=== PATIENT | female | born 1990 | race Caucasian/White ===

== ENCOUNTER 2023-10-04 12:11 | Outpatient (CLI) | payer OTHER, SELFPAY ==
--- OUTSIDE RECORDS SUMMARY | 2023-10-04 12:16 | XMS_ITS | Encounter Summary ---
Author Organization [place] Address [address] [place] [address] Care Team Providers Care Transport Aircrewman Name Role Phone [facility] Primary Care Provider Faustina Hunt MD Unavailable Ac Craven DPM Unavailable [phone] Vitaly Kulkarni MD Unavailable Charley Anderson MD Unavailable Unavailabl e Crintea-StoianFaustina MD Unavailable Charley Anderson MD Unavailable Unavailabl e Vanntea-StoianFaustina MD Unavailable Charley Anderson MD Unavailable Unavailabl e Vanntea-StoFaustina green MD Unavailable Faustina Hunt MD Unavailable [facility] Unavailable Encounter Details Date Type Department Care Team (Late st Contact Info) Description 08/28/2020 [facility] Medical Advice [facility] [address] [place] [address] Claudia Do RN Social History Tobacco Use Types Packs/Day Years Used Date Smoking Tobacco: Never Smokeless Tobacco: Never Alcohol Use Standard Drinks/Week Comments Not Currently 0 (1 standard drink = 0.6 oz pur e alcohol) 1x/week AUDIT-C Answer Date Recorded Q1: How often do you have a drink containing alc ohol? Never 02/03/2019 Average Number of Drinks Not on file 019 Frequency of Binge Drinking Not on file 01/07 PHQ-2 Answer Date Recorded PHQ-2 Score 0 10/10/2019 [place] Depression Scale Answer Date Recorded [place] Depression Score 7 09/11/2019 Last EPDS Self Harm Result Not on file 09/10 Sex and Gender Information Value Date Recorded Sex Assigned at Not on file Gender Identity Not on file Sexual Orientation Not on file COVID-19 Exposure Response Date Recorded In the last month, have you been in contact with someone who was confirmed or suspected to have Coronavirus / COVID-19? 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 documented as of this encounter Care Teams Transport Aircrewman Relationship Specialty Start Date End Date [facility] [address] [place], [place] [address] PCP - General Internal Medicine 01/03/20 Faustina Hunt MD [address] [place], [place] [address] Assigned PCP 12/12/19 08/29/20 Ac Craven DPM [address] [facility] [address] [place] [address] Assigned Musculoskeletal Provider 02/28/20 08/07/21 Vitaly Kulkarni MD [address] [place] [address] Assigned OBGYN Provider 02/28/20 Charley Anderson MD [place]CTIVE IN [place] SINCE 05/07/2021 Assigned PCP 08/30/20 10/31/20 Faustina Hunt MD [address] [place] [address] Assigned PCP 11/01/20 01/09/21 Charley Anderson MD [place] 05/07/2021 Assigned PCP 01/10/21 05/15/21 Faustina Hunt MD [address] [place] [address] Assigned PCP 05/16/21 07/10/21 Charley Anderson MD [place] 05/07/2021 Assigned PCP 07/11/21 11/12/21 Faustina Hunt MD [address] [place] [address] Assigned PCP 11/13/21 04/22/22 Faustina Hunt MD [address] [place] [address] Assigned PCP 07/02/22 01/06/23 [facility] [address] [address] Assigned PCP 06/01/23 09/27/23 documented as of this encounter
--- OUTSIDE RECORDS SUMMARY | 2023-10-04 12:16 | XMS_ITS | Clinical Summary ---
Author Organization [place] Address [address] [place] [address] Care Team Providers Care Pari Mutuel Ticket Seller Name Role Phone [facility] Primary Care Provider Allergies Active Allergy Reactions Criticality Noted Date Comments Fruit Extracts 08/31/2006 Oranges irritate her hands. Breaks out in a rash Sabine Oil Rash Low 05/23/2012 OrangesFruit extract Medications Medication Sig Dispensed Refills Start Date End Date Status sertraline (ZOLOFT) 50 MG tabletIndications:No rmal in multigravida in first trimester,Depression during in second trimester Take 1 tablet (50 mg) by mouth daily 90 tablet 3 09/13/2019 Active Additional Information Patient not taking.Reported on 04/01/2023 ibuprofen (ADVIL/MOTRIN) 600 MG tabletIndications:Pa inful orthopaedic hardware (H24),S/P foot surgery, right Take 600mg of ibuprofen every 6 hours x 7 days to assist in pain control. If you are not tolerating the medication, you are ok to stop. 30 tablet 01/08/2020 Active Additional Information Patient not taking.Reported on 08/21/2020 acetaminophen (TYLENOL) 325 MG tabletIndications:Pa inful orthopaedic hardware (H24),S/P foot surgery, right Take 2 tablets (650 mg) by mouth every 4 hours as needed for mild pain 50 tablet 01/08/2020 Active Additional Information Patient not taking.Reported on 08/21/2020 ibuprofen (ADVIL/MOTRIN) 600 MG tabletIndications:S/ P foot surgery, right Take 600mg of ibuprofen every 6 hours as needed for pain control. 15 tablet 01/14/2020 Active Additional Information Patient not taking.Reported on 02/07/2020 ADDERALL XR 20 MG 24 hr capsule Take 20 mg by mouth daily 07/09/2020 Active ondansetron (ZOFRAN ODT) 4 MG ODT tabIndications:Nause a and vomiting, unspecified vomiting type Take 1-2 tablets (4-8 mg) by mouth every 8 hours as needed for nausea 10 tablet 04/01/2023 Active Active Problems Problem Noted Date Diagnosed Date Painful orthopaedic hardware (H24) 12/20/2019 Overview: Added automatically from request for surgery [id number] ASCUS of cervix with negative high risk HPV 10/2015 Overview: 2006 - 2013 all NIL paps (in Care Everywhere) 09/11/15 ASCUS pap, neg HR HPV @ age 25 (in Care Everywhere) -- per guidelines, 3 year cotest indicated 02/27/19 NIL pap, neg HR HPV. Plan 3 year pap Tibial torsion 11/12/2011 Depressive disorder 04/08/2011 Generalized anxiety disorder 02/09/2011 Attention deficit hyperactivity disorder (ADHD) 12/10/2010 Overview: ADHD. Resolved Problems Problem Noted Date Diagnosed Date Resolved Date Vaginal delivery 09/13/2019 09/11/2019 Encounter for sterilization 09/13/2019 09/11/2019 anemia 09/13/2019 09/11/2019 Indication for care in labor or delivery 08/27/2019 09/13/2019 Encounter for triage in patient 08/03/2019 09/13/2019 Hyperemesis gravidarum 02/12/201909/12 Immunizations Name Administration Dates Next Due Flu, Unspecified 01/23/2013 HIB (PRP-T) 07/05/1991,07/23/1990,05/23/1990 HPV Quadrivalent 09/02/2008,03/03/2008, 8 Hepatitis B, Peds 12/06/2000,07/05/2000,05/17/19 01 Historical DTP/aP 08/11/1994, 2,07/23/1990,1990,02/23/1990 Influenza (H1N1) 03/13/2009 Influenza (IIV3) PF 02/08/2012,02/07/2011,2008 Influenza Vaccine >6 months,quad, PF 08/21/2020 MMR 01/02/2003,07/05/1991 Mantoux Tuberculin Skin Test 11/05/1990 OPV, unspecified 08/11/1994, 2,05/23/1990,1989 TDAP Vaccine (Adacel) 07/04/2019,10/16/2009 Td (Adult), Adsorbed 01/02/2003 Family History Medical History Relation Comments Diabetes Maternal Grandfather Breast Cancer Maternal Grandmother Cerebrovascular Disease Paternal Grandmother Relation Status Comments Maternal Grandfather Maternal Grandmother Paternal Grandmother Social History Tobacco Use Types Packs/Day Years Used Date Smoking Tobacco: Never Smokeless Tobacco: Never Tobacco Cessation:Counseling Given: Yes Alcohol Use Standard Drinks/Week Comments Not Currently 0 (1 standard drink = 0.6 oz pur e alcohol) 1x/week AUDIT-C Answer Date Recorded Q1: How often do you have a drink containing alc ohol? Never 02/03/2019 Average Number of Drinks Not on file 019 Frequency of Binge Drinking Not on file 01/07 PHQ-2 Answer Date Recorded PHQ-2 Score 0 10/10/2019 [place] Depression Scale Answer Date Recorded [place] Depression Score 7 09/11/2019 Last EPDS Self Harm Result Not on file 09/10 Adolescent Education Answer Date Record ed Getting School Help Needed Not on file 01/27 Sex and Gender Information Value Date Recorded Sex Assigned at Not on file Gender Identity Not on file Sexual Orientation Not on file Last Filed Vital Signs Vital Sign Reading Time Taken Comments Blood Pressure 107/72 04/01/2023 9:15 AM ELECTRICAL MANAGER Pulse 73 04/01/2023 9:15 AM ELECTRICAL MANAGER Temperature 36.2 ??C (97.1 ??F) 04/01/2023 9:15 AM CS T Respiratory Rate 20 11/29/2022 10:02 AM CDT Oxygen Saturation 99% 04/01/2023 9:15 AM ELECTRICAL MANAGER Inhaled Oxygen Concentration - - Weight 58.1 kg (128 lb) 08/21/2020 8:47 AM CDT Height 170.2 cm (5' 7) 08/21/2020 8:47 AM CDT Body Mass Index 20.05 08/21/2020 8:47 AM CDT Plan of Treatment Upcoming Encounters Date Type Department Care Team (Late st Contact Info) Description 10/30/2023 10:00 AM CDT Office Visit [facility] [address] [place] [address] [place] [address] [place] [address] Health Maintenance Due Date Last Done Comments ANNUAL REVIEW OF HM ORDERS 1989 YEARLY PREVENTIVE VISIT 1989 HEPATITIS C SCREENING 11/18/2007 PAP FOLLOW-UP 02/27/2022 02/27/2019, 02/06, 02/27/2019 COVID-19 Vaccine ( season) 2023 01/07/2021 PHQ-2 (once per calendar year) 2023 10/10/2019, 04/02/2019, 04/02/2019 ADVANCE CARE PLANNING 01/05/2025 01/06/2020 DTAP/TDAP/TD IMMUNIZATION (8 - Td or Tdap) 07/04/2029 07/04/2019, 10/16/2009, 01/02/2003, Additional history exists HEPATITIS B IMMUNIZATION Completed 001, 07/05/2000, 05/17/2000 HPV IMMUNIZATION Completed 09/02/2008, , 12/31/2007 HIV SCREENING Completed 02/11/2019 INFLUENZA VACCINE Completed 02/03/2023, , 02/05/2021, Additional history exists IPV IMMUNIZATION Aged Out No longer e ligible based on patient's age to complete this topic MENINGITIS IMMUNIZATION Aged Out No l onger eligible based on patient's age to complete this topic Pneumococcal Vaccine: Pediatrics (0 to 5 Years) and At-Risk Patients (6 to 64 Years) Aged Out No longer eligible based on patient's age to complete this topic RSV MONOCLONAL ANTIBODY Aged Out No l onger eligible based on patient's age to complete this topic Procedures Procedure Name Priority Date/Time Associated Diagnosis Comments PAP IMAGED THIN LAYER SCREEN Routine 02/27/2019 10:04 AM CDT Normal in multigravida in first trimester Hx of pre-eclampsia in prior , currently , first trimester Hyperemesis gravidarum HIV ANTIGEN ANTIBODY COMBO Routine 02/11/2019 7:01 PM CDT Encounter for supervision of other normal in first trimester from Last 3 Months or Most Recently Relevant to Health Maintenance Results * Pap imaged thin layer screen reflex to HPV if ASCUS - recommend age 25 - 29 (02/27/2019 10:04 AM CDT) PAP NIL TUNDE Greco Report Patient Name: GERALDINE SHEA MR#: [id number] Specimen #: [id number] Collected: 02/27/2019 Received: 02/28/2019 Reported: 03/01/2019 12:05 Ordering Phy(s): VITALY BOUDREAUX For improved result formatting, select 'View Enhanced Report Format' under Linked Documents section. SPECIMEN/STAIN PROCESS: Pap imaged thin layer prep screening (Surepath, FocalPoint with guided screening) ? Pap-Cyto x 1, Pap with reflex to HPV if ASCUS x 1 SOURCE: Cervical Pap imaged thin layer prep screening (Surepath, FocalPoint with guided screening) SPECIMEN ADEQUACY: Satisfactory for evaluation. -Transformation zone component absent. CYTOLOGIC INTERPRETATION: Negative for intraepithelial lesion or malignancy Electronically signed out by: Lang ROLLINS, (ASCP) CLINICAL HISTORY: LMP: 12/23/18 , Papanicolaou Test Limitations: ??Cervical cytology is a screening test with limited sensitivity; regular screening is critical for cancer prevention; Pap tests are primarily effective for the diagnosis/preventi on of squamous cell carcinoma, not adenocarcinomas or other cancers. COLLECTION SITE: Client: ??[facility] Location: [facility]) The technical component of this testing was completed at the [facility], with the professional component performed at the [facility], [address], [place] [address] ([phone]) COPATH Cytologic material (specimen) 02/27/2019 10:04 AM CDT 02/28/2019 7:55 AM CDT Vitaly Boudreaux MD LAB - OPTIME C LINICAL SPECIMEN COPATH * HIV Antigen Antibody Combo (02/11/2019 7:01 PM CDT) HIV Antigen Antibody Combo Nonreactive NR^Nonrea ctive 02/12/2019 4:17 PM CDT [facility] Comment:HIV-1 p24 Ag & HIV-1 /HIV-2 Ab Not Detected Blood specimen (specimen) 02/11/2019 7:01 PM CDT 02/11/2019 7:06 PM CDT Vitaly Boudreaux MD LAB - BLOOD OR DERABLES [facility] [address] [place] [address] from Last 3 Months or Most Recently Relevant to Health Maintenance Advance Directives For more information, please contact: [phone] * Full Code (Latest Code Status on File) Date Activated Date Inactivated Comments 07/21/2011 6:53 AM 02/03/2019 9:02 PM * Full Code Date Activated Date Inactivated Comments 07/21/2011 1:18 AM 07/21/2011 6:53 AM Care Teams Pari Mutuel Ticket Seller Relationship Specialty Start Date End Date Clinic - [address] [address] PCP - General Internal Medicine 01/03/20
--- OUTSIDE RECORDS SUMMARY | 2023-10-04 12:16 | XMS_ITS | Clinical Summary ---
[facility] Organization [facility] Address [address] [place] [address] Care Team Providers Care Stock Control Supervisor Name Role Phone Needs Pcp, Assignment Primary Care Provider [phone] Source Comments You are receiving this document as you are listed as the primary care provider,follow-up provider, or the patient has been referred to you for consultation.This is in compliance with the Medicare and[place] EHR Incentive Program,which states Providers who transition their patient to another setting of careor provider of care or refers their patient to another provider of care shouldprovide summary care record for each transition of care or referral. Catapulter Allergies Active Allergy Reactions Criticality Noted Date Comments Fruit Extracts Hives 07/14/2011 PN: when applied topically Medications Medication Sig Dispensed Refills Start Date End Date Status etonogestrel (NEXPLANON) 68 MG implant 68 mg by Subdermal route See Admin Instructions. To be administered once every 3 years in clinic office. 07/15/2011 Active ondansetron (ZOFRAN) 4 MG tablet Take 1 tablet by mouth every 8 hours as needed for Nausea and Vomiting. 30 tablet 0 07/15/2011 Active oxyCODONE (ROXICODONE) 5 MG immediate release tablet Take 1-2 tablets by mouth every 4 hours as needed for Pain. Indications: PAIN 80 tablet 0 07/15/2011 Active Additional Information Patient not taking.Reported on 06/19/2019 amphetamine-dextro amphetamine (ADDERALL) 30 MG tablet Take 25 mg by mouth daily (every 24 hours). 07/15/2011 Active MORphine (MSCONTIN) 30 MG 12 hour release tablet Take 1 tablet by mouth 2 times daily. Do not cut/crush/chew Indications: PAIN 40 tablet 0 07/15/2011 Active Additional Information Patient not taking.Reported on 06/19/2019 MORphine (MSCONTIN) 30 MG 12 hour release tablet Take 1 tablet by mouth 2 times daily. Do not cut/crush/chew Indications: PAIN 40 tablet 0 06/29/2012 Active Additional Information Patient not taking.Reported on 06/19/2019 oxyCODONE (ROXICODONE) 5 MG immediate release tablet Take 1-2 tablets by mouth every 4 hours as needed for Pain. Indications: PAIN 80 tablet 0 06/29/2012 Active Additional Information Patient not taking.Reported on 06/19/2019 hydrOXYzine pamoate (VISTARIL) 25 MG capsule Take 1-2 capsules by mouth every 4 hours as needed for Other (pain). 60 capsule 0 06/29/2012 Active Additional Information Patient not taking.Reported on 06/19/2019 ondansetron (ZOFRAN) 4 MG tablet Take 1 tablet by mouth every 8 hours as needed for Nausea and Vomiting. 30 tablet 0 06/29/2012 Active sertraline (ZOLOFT) 25 MG tablet Take 25 mg by mouth daily. Active Social History Tobacco Use Types Packs/Day Years Used Date Smoking Tobacco: Never Smokeless Tobacco: Never Alcohol Use Standard Drinks/Week Comments Yes 0 (1 standard drink = 0.6 oz pur e alcohol) social Estimated Date of Delivery Comme nts Yes 09/29/2019 Sex and Gender Information Value Date Recorded Sex Assigned at Not on file Gender Identity Not on file Sexual Orientation Not on file Last Filed Vital Signs Vital Sign Reading Time Taken Comments Blood Pressure 95/56 06/19/2019 10:35 AM SPLASH LINE OPERATOR Pulse 115 06/19/2019 10:35 AM SPLASH LINE OPERATOR Temperature 37 ??C (98.6 ??F) 06/19/2019 10:35 AM SPLASH LINE OPERATOR Respiratory Rate 20 06/19/2019 10:35 AM SPLASH LINE OPERATOR Oxygen Saturation 99% 06/19/2019 10:35 AM SPLASH LINE OPERATOR Inhaled Oxygen Concentration - - Weight 53.5 kg (118 lb) 07/14/2011 11:01 AM SPLASH LINE OPERATOR Height 170.2 cm (5' 7) 07/14/2011 11:01 AM SPLASH LINE OPERATOR Body Mass Index 18.48 07/14/2011 11:01 AM SPLASH LINE OPERATOR Plan of Treatment Health Maintenance Due Date Last Done Comments Cervical Cancer Screening Due 1989 Hep C Screening (Preventive Services) 1989 HIV Screening (Preventive Services) 2005 Adult Preventive Visit 11/18/2007 DTaP/Tdap/Td (1 - Tdap) 2008 HepB (1) 2008 COVID-19 Vaccine ( - 2022-2 4 season) 2023 Influenza (Season Ended) 2024 Zoster/Shingles (1 of 2) 11/18/2039 HPV Vaccine Aged Out No longer eligi ble based on patient's age to complete this topic HepA Aged Out No longer eligi ble based on patient's age to complete this topic Hib Aged Out No longer eligi ble based on patient's age to complete this topic IPV (Polio) Aged Out No longer eligi ble based on patient's age to complete this topic MCV4 Aged Out No longer eligi ble based on patient's age to complete this topic Pneumococcal Aged Out No longer eligi ble based on patient's age to complete this topic Care Teams Stock Control Supervisor Relationship Specialty Start Date End Date Needs Pcp, [place] [address] PCP - General 06/19/19
--- OUTSIDE RECORDS SUMMARY | 2023-10-04 12:16 | XMS_ITS | Referral Summary ---
Author Organization [place] Address [address] [place] [address] Care Team Providers Care Roll Forger Name Role Phone [facility] Primary Care Provider Allergies Active Allergy Reactions Criticality Noted Date Comments Fruit Extracts 08/31/2006 Oranges irritate her hands. Breaks out in a rash [place] Oil Rash Low 05/23/2012 OrangesFruit extract Medications [...] Overview: Added automatically from request for surgery [id number] ASCUS of cervix with negative high risk [...] Vaccine (Adacel) 07/04/2019,10/16/2009 Td (Adult), Adsorbed 01/02/2003 Social History Tobacco Use Types Packs/Day Years [...] Answer Date Recorded PHQ-2 Score 0 10/10/2019 [place] Depression Scale Answer Date Recorded [place] Depression Score 7 09/11/2019 Last EPDS Self [...] Comments Blood Pressure 107/72 04/01/2023 9:15 AM MEASUREMENT SUPERVISOR Pulse 73 04/01/2023 9:15 AM MEASUREMENT SUPERVISOR Temperature 36.2 ??C (97.1 ??F) 04/01/2023 9:15 AM CS T Respiratory Rate 20 11/29/2022 10:02 AM CDT Oxygen Saturation 99% 04/01/2023 9:15 AM MEASUREMENT SUPERVISOR Inhaled Oxygen Concentration - - Weight 58.1 kg (128 lb) 08/21/2020 8:47 AM CDT Height 170.2 cm (5' 7) 08/21/2020 8:47 AM CDT Body Mass Index 20.05 08/21/2020 8:47 AM CDT Plan of Treatment Upcoming Encounters Date Type Department Care Team (Late st Contact Info) Description 10/30/2023 10:00 AM CDT Office Visit [facility] [address] [place] [phone] AnkitaClemente [address] [place] [address] Procedures Procedure Name Priority Date/Time Associated Diagnosis [...] - 29 (02/27/2019 10:04 AM CDT) PAP AKIRA Greco Report Patient Name: GERALDINE SHEA MR#: [id number] Specimen #: [id number] Collected: 02/27/2019 Received: 02/28/2019 Reported: 03/01/2019 12:05 [...] lesion or malignancy Electronically signed out by: Isomary Poventud-Bella CT, (ASCP) CLINICAL HISTORY: LMP: 12/23/18 , Papanicolaou Test Limitations: ??Cervical cytology is a screening test with limited sensitivity; regular screening is critical for cancer prevention; Pap tests are primarily effective for the diagnosis/preventi on of squamous cell carcinoma, not adenocarcinomas or other cancers. COLLECTION SITE: Client: [facility] Location: [facility] () The technical component of this testing was completed at the [facility], with the professional component performed at the [facility], [address] [place] [phone] ([phone]) COPATH Cytologic material (specimen) 02/27/2019 10:04 AM CDT 02/28/2019 7:55 AM CDT Vitaly Boudreaux MD LAB - OPTIME C LINICAL SPECIMEN Performing Organization Address [facility]/ZIP Co de Phone Number COPATH * HIV Antigen Antibody Combo (02/11/2019 7:01 PM CDT) HIV Antigen Antibody Combo Nonreactive NR^Nonrea ctive 02/12/2019 4:17 PM CDT [facility] Comment:HIV-1 p24 Ag & HIV-1 /HIV-2 Ab Not Detected Blood specimen (specimen) 02/11/2019 7:01 PM CDT 02/11/2019 7:06 PM CDT Vitaly Boudreaux MD LAB - BLOOD OR DERABLES Performing Organization Address City/[facility]/ZIP Co de Phone Number [facility] [address] [place] [address] from Last 3 Months or Most Recently Relevant to Health Maintenance Advance Directives For more information, please contact: [phone] * Full Code (Latest Code Status on File) Date Activated Date Inactivated Comments 07/21/2011 6:53 AM 02/03/2019 9:02 PM * Full Code Date Activated Date Inactivated Comments 07/21/2011 1:18 AM 07/21/2011 6:53 AM Care Teams Roll Forger Relationship Specialty Start Date End [place] [address] [address] PCP - General Internal Medicine 01/03/20
--- OUTSIDE RECORDS SUMMARY | 2023-10-04 12:16 | XMS_ITS | Encounter Summary ---
Author Organization [facility] Address [address] [place] [id number] Care Team Providers Care Window Air Conditioner Installer Name Role Phone No Ref-Primary, Physician Primary Care Provider [facility] Primary Care Provider Faustina Hunt MD Unavailable Ac Craven DPM Unavailable [phone] Vitaly Kulkarni MD Unavailable Charley Anderson MD Unavailable Unavailabl e Faustina Hunt MD Unavailable Charley Anderson MD Unavailable Unavailabl e Faustina Hunt MD Unavailable Charley Anderson MD Unavailable Unavailabl e Faustina Hunt MD Unavailable Faustina Hunt MD Unavailable [facility] Unavailable Encounter Details Date Type Department Care Team (Late st Contact Info) Description 11[place]18/[place] [facility] [place] [facility] [address] [facility] [address] [place] [address] Frank Weber Social History Tobacco Use Types Packs/Day Years Used Date Smoking Tobacco: Never Smokeless Tobacco: Never Alcohol Use Standard Drinks/Week Comments Not Currently 0 (1 standard drink = 0.6 oz pur e alcohol) AUDIT-C Answer Date Recorded Q1: How often do you have a drink containing alc ohol? Never 02/03/2019 Average Number of Drinks Not on file 019 Frequency of Binge Drinking Not on file 01/07 PHQ-2 Answer Date Recorded PHQ-2 Score 0 10/10/2019 [place] Depression Scale Answer Date Recorded [place] Depression Score 7 09/11/2019 Last EPDS Self [...] have Coronavirus / COVID-19? No / Unsure 11/15/2019 1:19 PM CDT documented as of this encounter Plan of Treatment Upcoming Encounters Date Type Department Care Team (Late st Contact Info) Description 10/30/2023 10:00 AM CDT Office Visit [facility] [id number] [place] [phone] [place] [id number] [place] [id number] documented as of this encounter Visit Diagnoses Not on filedocumented in this encounter Additional Health Concerns Assessment Noted Time PHQ-9 Depression Total Score: 15 019 3:41 PM PHOTO MACHINE OPERATOR documented as of this encounter Care Teams Window Air Conditioner Installer Relationship Specialty Start Date End Date No Ref-Primary, Physician PCP - General 02/03/19 01/02/20 [facility] [address] [place], [place] [id number] PCP - General Internal Medicine 01/03/20 Faustina Hunt MD [address] [place], [place] [address] Assigned PCP 12/12/19 08/29/20 Ac Craven DPM [id number] [facility] [address] [place] [address] Assigned Musculoskeletal Provider 02/28/20 08/07/21 Vitaly Kulkarni MD [address] [place] [address] Assigned OBGYN Provider 02/28/20 Charley Anderson MD [facility] [place] 05/07/2021 Assigned PCP 08/30/20 10/31/20 Faustina Hunt MD [address] [place] [address] Assigned PCP 11/01/20 01/09/21 Charley Anderson MD [place] 05/07/2021 Assigned PCP 01/10/21 05/15/21 Faustina Hunt MD [address] [place] [address] Assigned PCP 05/16/21 07/10/21 Charley Anderson MD [place] 05/07/2021 Assigned PCP 07/11/21 11/12/21 Faustina Hunt MD [address] [place] [address] Assigned PCP 11/13/21 04/22/22 Faustina Hunt MD [address] [place] [address] Assigned PCP 07/02/22 01/06/23 [facility] [address] [place] [address] Assigned PCP 06/01/23 09/27/23 documented as of this encounter
== END 2023-10-04 12:12 | disposition home or self-care (01) ==
PROVIDERS: PCP Physician Assistant Medical; Visit Provider Physician Assistant Medical
DX: F41.8 Other specified anxiety disorders (principal)
CPT/HCPCS: 80053; 84443

== ENCOUNTER 2024-10-18 07:34 | Day surgery (SDC) | payer BC, SELFPAY ==
[2024-10-18] VITALS (9 sets, daily range): BP systolic 113–132; BP diastolic 81–95; PULSE 62–89; RESP 16; TEMP 37.4; O2SAT 95–100; BMI 22.1
[2024-10-18] MEDS: LACTATED RINGERS 500 ML 500 ML 100 ML IV (08:30)
[2024-10-18] MEDS: SODIUM CHLORIDE 0.9 % (FLUSH) 10 ML SYRINGE IVF (08:30)
--- NOTE | 2024-10-18 09:28 | P.ANES_ITS ---
Anesthesia Charges Start Date/Time Anesthesia Start Date: 10/18/24 Anesthesia Start Time: 09:44 Stop Date/Time Anesthesia Stop Date: 10/18/24 Anesthesia Stop Time: 10:25 Coding CPT Codes CPT Codes: ANESTH HYSTEROSCOPE/GRAPH - 98500 ([id number]) P1 - NORMAL HEALTHY PATIENT, QK - ADMINISTRATIVE FELLOW 2-4 CNCRNT ANES PROC, QX - OIL PROSPECTING OBSERVER SVC W/ MED DIRECTION
--- NOTE | 2024-10-18 09:28 | W.ANESCHARGE ---
Anesthesia Charges Start Date/Time Anesthesia Start Date: 10/18/24 Anesthesia Start Time: 09:44 Stop Date/Time Anesthesia Stop Date: 10/18/24 Anesthesia Stop Time: 10:25 Coding CPT Codes CPT Codes: ANESTH HYSTEROSCOPE/GRAPH - 62938 ([id number]) P1 - NORMAL HEALTHY PATIENT, QK - ELECTRIC REFRIGERATOR SERVICER 2-4 CNCRNT ANES PROC, QX - PAVING CREW FOREMAN SVC W/ MED DIRECTION
[2024-10-18] MEDS: LIDOCAINE 1% MDV 20 ML INJECTION (10:02)
[2024-10-18] MEDS: BUPIVACAINE 0.25% 30 ML INJECTION (10:02)
--- NOTE | 2024-10-18 10:21 | P.GYNPRC_ITS ---
Procedure Note Date of procedure: 10/18/24 Will [facility] bill your pro fee for this procedure?: Yes Pre-op diagnosis: Menometrorrhagia. Post-op diagnosis: Same. Procedure: Hysteroscopy, D&C, Airam endometrial ablation. Anesthesia: MAC and other (Paracervical block) Complications: None. Surgeon: Deb Palmer MD. Estimated blood loss (mL): 5 Pathology: specimen obtained, sent to pathology (Endometrial curettings) Condition: stable Disposition: same day Findings: Normal-appearing endometrial cavity and tubal ostia bilaterally. Procedure Description: After obtaining informed consent, the patient was taken to the operating room where she received monitored anesthesia care. She was prepared and draped in the normal sterile fashion, in the dorsal lithotomy position. An open-sided bivalve speculum was introduced into the vagina and the cervix visualized. The anterior lip of the cervix was grasped with a single-tooth tenaculum for traction. A paracervical block was then administered using a total of 20 mL of a 50/50 mixture of 0.25% Marcaine and 1% lidocaine plain. The uterus was gently sounded. Sound length was 9 cm. The cervix length was determined to be 4 cm using Hegar dilators, yielding a uterine cavity length of 5 cm. The cervix was gently dilated to a #6 Hegar dilator. A hysteroscope was then advanced under direct visualization through the cervix into the uterine cavity. Sterile normal saline was used as distending medium. The uterine cavity was carefully inspected with the findings noted above. The hysteroscope was then removed. The endometrial lining was then sharply curetted. The Airam device was then set to a cavity length of 5 cm, inserted through the cervical os into the uterine cavity to the level of the fundus, and deployed. The device was sealed against the cervix. The safety checks were then passed x2 and the 2-minute treatment cycle initiated. Following completion of the treatment cycle, the Airam device was removed. The hysteroscope was advanced again into the uterine cavity and the uterine cavity inspected. A good ablation was noted from the internal os to fundus and to the cornua bilaterally. Pictures were taken for documentation purposes. The hysteroscope was removed. The tenaculum was removed. There was little bleeding from the tenaculum site, which was controlled with direct pressure sponge stick. All instruments were then removed. The patient tolerated the procedure well. Sponge, lap, needle, and instrument counts reported as correct x2. The patient was taken to the recovery room awake in a stable condition. Fluid deficit was 10 mL.
--- NOTE | 2024-10-18 10:25 | P.ANES_ITS ---
Anesthesia Charges Start Date/Time Anesthesia Start Date: 10/18/24 Anesthesia Start Time: 09:44 Stop Date/Time Anesthesia Stop Date: 10/18/24 Anesthesia Stop Time: 10:25 Coding CPT Codes CPT Codes: ANESTH VAGINAL PROCEDURES - 96093 ([id number]) P1 - NORMAL HEALTHY PATIENT, QK - TAG MARKER 2-4 CNCRNT ANES PROC, QX - PRODUCTION POSTING CLERK SVDustin W/ MED DIRECTION
--- NOTE | 2024-10-18 10:25 | W.ANESCHARGE ---
Anesthesia Charges Start Date/Time Anesthesia Start Date: 10/18/24 Anesthesia Start Time: 09:44 Stop Date/Time Anesthesia Stop Date: 10/18/24 Anesthesia Stop Time: 10:25 Coding CPT Codes CPT Codes: ANESTH VAGINAL PROCEDURES - 65157 ([id number]) P1 - NORMAL HEALTHY PATIENT, QK - AIRBORNE OPERATIONS SUPERINTENDENT 2-4 CNCRNT ANES PROC, QX - RADIOLOGICAL DEFENSE OFFICER SVDustin W/ MED DIRECTION
[2024-10-18] MEDS: OXYCODONE 5 MG TABLET PO (12:15)
[2024-10-18] MEDS: ONDANSETRON 2 MG/ML inj 4 MG IVP (12:15)
== END 2024-10-18 12:47 | disposition home or self-care (01) ==
PROVIDERS: PCP Physician Assistant Medical; Visit Provider Obstetrics & Gynecology
PROC: 0UF98ZZ Fragmentation in Uterus, Via Natural or Artificial Opening Endoscopic (ICD-10-PCS; CPT 58563; principal; 2024-10-18 09:00)
DX: N92.1 Excessive and frequent menstruation with irregular cycle (principal)
CPT/HCPCS: 58563; 00940; 00952; 81025; 88305; J2003; A9270; J0665; J1100; J1885; J2250; J2405; J2704; J3010; J3490; J7120

== ENCOUNTER 2024-11-27 16:14 | Outpatient (CLI) | payer BC, SELFPAY | END 2024-11-27 16:15 | disposition home or self-care (01) | LOC: NFLDREF 12-01 15:22 | PROVIDERS: PCP Physician Assistant Medical; Referring Provider Physician Assistant Medical; Visit Provider Physician Assistant Medical | DX: Z11.1 Encounter for screening for respiratory tuberculosis (principal) | CPT/HCPCS: 86480 ==